=== PATIENT | male | born 1980 | race Caucasian/White ===

== ENCOUNTER 2017-09-24 13:34 | Emergency (ER) | payer OTHER ==
[2017-09-24 13:41] VITALS: BP 163/91
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
== END 2017-09-24 14:30 | disposition home or self-care (01) ==
DX: S39.92XA Unspecified injury of lower back, initial encounter (principal); V49.49XA Driver injured in collision with other motor vehicles in traffic accident, initial encounter; Y92.410 Unspecified street and highway as the place of occurrence of the external cause; Y99.8 Other external cause status; Y93.89 Activity, other specified

== ENCOUNTER 2017-09-26 03:23 | Inpatient (IN) | payer OTHER ==
[2017-09-26] MEDS ORDERED: IPRATROPIUM/ALBUTEROL 3 ML DEYVIAL ONE (03:46)
[2017-09-26] MEDS ORDERED: levOFLOXACIN 750 MG/DEXTROSE/150 ML BAG IV ONE (04:22)
[2017-09-26] MEDS ORDERED: CYCLOBENZAPRINE 10 MG TAB ONE (06:33)
[2017-09-26] MEDS ORDERED: ENOXAPARIN 40 MG/0.4 ML SYR SC ONE (10:49)
[2017-09-26] MEDS ORDERED: METOPROLOL TARTRATE 25 MG TAB ONE (12:15)
[2017-09-26] MEDS ORDERED: hydrALAZINE 20 MG/ML VIAL IVP PRN (13:37)
[2017-09-26] MEDS ORDERED: hydrALAZINE 20 MG/ML VIAL ONE ×2 (13:43→13:59)
[2017-09-26] MEDS ORDERED: NS 1,000 ML IV SCH (16:00)
[2017-09-26] MEDS ORDERED: methylPREDNISolone SOD SUCC 125 MG/2 ML VIAL ONE (18:55)
[2017-09-26] MEDS ORDERED: METOPROLOL TARTRATE 25 MG TAB PO ONE (23:45)
[2017-09-26] MEDS ORDERED: CYCLOBENZAPRINE 10 MG TAB PO PRN (23:46)
[2017-09-27] MEDS: ENOXAPARIN 40 MG/0.4 ML SYR SC SCH ×2 (05:17→09:11)
[2017-09-27] MEDS: methylPREDNISolone SOD SUCC 125 MG/2 ML VIAL IVP SCH ×4 (05:17→17:52)
[2017-09-27] MEDS: RANITIDINE HCL 150 MG/10 ML UDCUP PO SCH ×3 (05:18→22:33)
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
[2017-09-27] MEDS ORDERED: ACETAMINOPHEN 325 MG TAB PO PRN (06:25)
[2017-09-27] MEDS ORDERED: ONDANSETRON 4 MG/2 ML VIAL IVP PRN (06:25)
[2017-09-27] MEDS ORDERED: ONDANSETRON DISINTEGRATING 4 MG TAB PO PRN (06:25)
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
[2017-09-27] MEDS ORDERED: ADDERALL 20 MG TAB PO PRN (07:39)
[2017-09-27] MEDS ORDERED: NON-FORMULARY NEW DRUG (Oxycodone Hcl/Acetaminophen [Percocet 10-325 Mg Tablet] 1 EACH) PO PRN (07:49)
[2017-09-27] MEDS ORDERED: METHOCARBAMOL 500 MG TAB PO PRN (07:49)
[2017-09-27] MEDS ORDERED: OXYCODONE/APAP 5/325 TAB PO PRN (07:53)
[2017-09-27] MEDS ORDERED: oxyCODONE IR 5 MG TAB PO PRN (07:53)
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
[2017-09-27 09:04] LABS: PLATELET COUNT 252 10^3/uL (150-400)
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
[2017-09-27 09:20] LABS: CREATINE KINASE 64 IU/L (0-224)
--- NOTE | 2017-09-27 10:49 | CPEKG ---
Heart Rate: 85 RR Interval: 706 P-R Interval: 164 QRSD Interval: 94 QT Interval: 364 QTC Interval: 433 P Ogema: 38 QRS Ogema: 96 T Wave Ogema: 18 EKG Severity - OTHERWISE NORMAL ECG - EKG Impression: SINUS RHYTHM EKG Impression: BORDERLINE RIGHT AXIS DEVIATION Electronically Signed By: Rico Meier 27-Sep-2017 20:33:21
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
--- NOTE | 2017-09-27 14:58 | ASMTCMCOM ---
[facility] Case Management CM Communcation Patient Name: CLAUDE SETHI V Rpt#: [id number] MR#: [id number] Attending: Elizabeth Mercado MD Adm Date: 09/26/17 CM Note CM Note Notes: Chart reviewed. 37 year old male admitted via ED for complaints of cough, he is diagnosed with pnuemonia. He is normally independent, no needs identified. CM availble should needs arise. Plan: Home independent when medically clear for discharge. Date Signed: 09/26/2017 09:13 AM Electronically Signed By: Carol Sadler RN
[2017-09-27] MEDS ORDERED: IOPAMIDOL (ISOVUE 370) 100 ML BTL IV ONE (15:16)
[2017-09-27] MEDS ORDERED: TAMSULOSIN HCL 0.4 MG CAP PO SCH (19:15)
[2017-09-27] MEDS: KETOROLAC 30 MG/1 ML SDV IVP PRN (19:48)
[2017-09-27] MEDS: TAMSULOSIN HCL 0.4 MG CAP PO SCH (19:49)
--- NOTE | 2017-09-27 20:14 | SOAPPROG ---
SOAP Progress Note Assessment/Plan: Assessment:Pneumonia, Obstructing kidney stone. Plan: Proceed with evaluation for the kidney stone. Continue with hydration adn antibiotics. Add flomax and Ketoralac. 09/27/17 20:13 Subjective: Still having a lot of flank pain. Breathing better. Appetite better. Objective: Vital Signs Temp Pulse Resp BP Pulse Ox 97.9 F 67 16 151/85 H 97 09/27/17 19:32 09/27/17 19:32 09/27/17 19:32 09/27/17 19:32 09/27/17 19:32 Laboratory Results 09/27/17 08:56 09/27/17 08:56 09/26/17 09/27/17 09/28/17 05:59 05:59 05:59 Intake Total 2745 Output Total 1475 1345 Balance -1475 1400 PT Cancelled 09/26/17 10:34 INR Cancelled 09/26/17 10:34 ELevated WBC. CXR slightly improved. CT pulmonary angiogram no clots. CT of abdomen demonstrates an obstructive renal calculus at the R uretero-vesicular junction. ICD10 Worksheet Patient Problems: Problems Problem Status Onset Pneumonia Acute
[2017-09-27] MEDS: methylPREDNISolone SOD SUCC 40 MG/ML VIAL IVP SCH (22:33)
--- NOTE | 2017-09-28 08:09 | SOAPPROG ---
THIEN Progress Note Assessment/Plan: Assessment: 37 yo male with h/o ADD admitted for acute bilateral pneumonia and 5mm obstructing calculus to right ureterovesical junction. Plan: -Obstructing renal calculi: awaiting urology consult. Pt thinks he may have passed the stone as he is not experiencing any pain anymore and thinks he may have felt it travel through urethra and out. Will d/c IVF as pt is taking adequate POs and feels confident he can maintain hydration through POs. -Pneumonia: levaquin, repeat cxr pending this AM. O2 requirements down significantly to only a couple of liters. Continue steroids for now, tolerating okay. -Attention deficit disorder: stable on current adderall dose, monitored outpt -DVT prophylaxis: sq lovenox -Dispo: likely home tomorrow pending clearance from urology and continued improvement with resp function 09/28/17 08:10 Subjective: Sitting up eating breakfast in bed this AM. Says he hasn't had any pain since about 2am, thinks he passed the stone. Also feels like breathing is significantly improved. Eager to go home today or tomorrow. Objective: Vital Signs Temp Pulse Resp BP Pulse Ox 36.6 C 57 L 17 121/63 H 95 09/28/17 07:09 09/28/17 07:09 09/28/17 07:09 09/28/17 07:09 09/28/17 07:09 Laboratory Results 09/27/17 08:56 09/27/17 08:56 09/27/17 09/28/17 09/29/17 05:59 05:59 05:59 Intake Total 3045 Output Total 1475 1845 Balance -1475 1200 PT Cancelled 09/26/17 10:34 INR Cancelled 09/26/17 10:34 Gen- AAO, much more well appearing today, not in any visible distress Head- normocephalic, atraumatic CV- S1S2, RRR, no murmurs, rubs, gallops Resp- still with rhonchi to the right lung, but overall much improved from admission, O2 requirements down to a few liters Abd- SNT, nondistended Extremities- no peripheral edema Skin- warm and dry Psych- mood and affect full range ICD10 Worksheet Patient Problems: Problems Problem Status Onset Pneumonia Acute
[2017-09-28 09:20] LABS: PLATELET COUNT 289 10^3/uL (150-400)
[2017-09-28] MEDS: RANITIDINE HCL 150 MG/10 ML UDCUP PO SCH ×2 (09:46→20:22)
[2017-09-28] MEDS: ENOXAPARIN 40 MG/0.4 ML SYR SC SCH (09:47)
[2017-09-28] MEDS: methylPREDNISolone SOD SUCC 40 MG/ML VIAL IVP SCH (09:48)
--- NOTE | 2017-09-28 15:05 | ASMTCMCOM ---
CM Note CM Note Notes: Per chart notes, pt improving and will likely DC tomorrow with no needs. Date Signed: 09/28/2017 03:04 PM Electronically Signed By:Tamanna Hutchison LCSW
[2017-09-28] MEDS: TAMSULOSIN HCL 0.4 MG CAP PO SCH (20:22)
[2017-09-29] MEDS: KETOROLAC 30 MG/1 ML SDV IVP PRN (00:48)
[2017-09-29] MEDS ORDERED: LORazepam 0.5 MG TAB PO ONE (03:21)
[2017-09-29] MEDS ORDERED: methylPREDNISolone SOD SUCC 40 MG/ML VIAL IVP SCH (09:00)
[2017-09-29] MEDS: RANITIDINE HCL 150 MG/10 ML UDCUP PO SCH (09:26)
[2017-09-29] MEDS: ENOXAPARIN 40 MG/0.4 ML SYR SC SCH (09:28)
[2017-09-29 09:37] VITALS: BP 144/89
--- NOTE | 2017-09-29 10:24 | PDHOMEO2F ---
Home Oxygen Face to Face Home Orders: I certify that a physician or a nurse practitioner or physician's print shop assistant has had a [id number] encounter with this patient on the date of this order due to the diagnosis listed, which relates to the primary reason the patient requires home oxygen. Alternative treatments have been tried, or considered, and deemed ineffective. It is anticipated that supplemental oxygen will result in improvement with treatment. Home oxygen qualifying diagnosis: PNEUMONIA Home oxygen secondary diagnosis: HYPOXIA SpO2 on room air (%): 85 Frequency of home oxygen needed: continuous Home oxygen liters per minute: 3 Home oxygen delivery device: nasal cannula Concentrator: Yes E-tanks for mobility and back up: Yes If ordering portable O2, is the patient mobile in the home?: Yes I certify that, based on these findings, the home oxygen is medically necessary for this patient for the following length of time. Length of time home oxygen needed: 1 month
--- NOTE | 2017-09-29 10:31 | ASMTLACE ---
LACE Length of stay for Answers: 3 days current admission Acuity / Level of Answers: Yes Care: Did the patient have an inpatient admission? Comorbidities - select Answers: Other Notes: pneumonia all that apply # of Emergency department Answers: 1-2 visits in the last 6 months Score: 8 Date Signed: 09/29/2017 10:29 AM Electronically Signed By:Carol Sadler RN
--- NOTE | 2017-09-29 10:34 | ASMTCMCOM ---
CM Note CM Note Notes: Chart reviewed. Patient medically cleared for discharge to home with oxygen. No other needs identified CM available should needs arise. Plan: Home with home oxygen. Date Signed: 09/29/2017 10:34 AM Electronically Signed By:Carol Sadler RN
== END 2017-09-29 13:40 | disposition home or self-care (01) | DRG 194 ==
LOC: F1N 05:22 → OBSVTOIN 06:25
PROVIDERS: ADMIT Family Medicine; ATTEND Family Medicine
DX: J18.8 Other pneumonia, unspecified organism (principal); N13.2 Hydronephrosis with renal and ureteral calculous obstruction; N17.9 Acute kidney failure, unspecified; F90.9 Attention-deficit hyperactivity disorder, unspecified type; M62.838 Other muscle spasm; K76.0 Fatty (change of) liver, not elsewhere classified; R09.02 Hypoxemia
CPT/HCPCS: 96374; J0360; J1650; J1885; J1956; J2270; J2920; J2930; Q9967